=== PATIENT | female | born 1965 | race Asian ===

== ENCOUNTER → 2017-01-29 | Outpatient (CLI) | payer BC ==
[~2017-01-29] MED LIST: ALBUAER19 INH; CALC1CHW71 PO; CHOL1CAP57 PO; DTR5 PO; EPHE1TAB PO; FIBER GUMMIES PO; FLUT0.0529 NAE; GLUCOSAMINE HCL PO; LORAPOW16 PO; MULTTAB58 PO; OMEG10002 PO; TAMO20TA47 PO; [UNRECOGNIZED DRUG - OTHER] SL
--- NOTE | 2017-01-29 14:14 | MAMMOGRAPHY REPORT ---
UNILATERAL LEFT DIGITAL SCREENING MAMMOGRAM TOMOSYNTHESIS WITH CAD: 01/29/2017 CLINICAL HISTORY: Asymptomatic. Personal history of breast cancer. Post right mastectomy. TECHNIQUE: Left breast tomosynthesis in addition to standard 2D mammography was performed. Current st udy was also evaluated with a Computer Aided Detection (CAD) system. COMPARISON: Comparison is made to exams dated: 01/25/2016 mammogram, 01/23/2015 mammogram, 04/14/2014 mammogram, 03/29/2014 ultrasound, 02/18/2014 mammogram, and 02/18/2014 stereotactic biopsy - [facility]. BREAST COMPOSITION: The tissue of the left breast is heterogeneously dense, which may obscure small masses. FINDINGS: There is stable post biopsy changes in the upper outer quadrant of the left breast. A stab le benign rim calcification also seen in the left upper outer quadrant. No new suspicious mass, arch itectural distortion or cluster of microcalcifications is seen. IMPRESSION: ACR BI-RADS CATEGORY 1: NEGATIVE There is no mammographic evidence of malignancy. A 1 year screening mammogram is recommended. The pa tient will receive written notification of the results. Approximately 10% of breast cancers are not detected with mammography. A negative mammographic report should not delay biopsy if a clinically suggestive mass is present. Callie Cheng M.D. ay/:01/29/2017 12:55:25 Clam Dredger: Solange ELENAR, M, [facility] letter sent: Normal 1/2 BI-RADS Code: ACR BI-RADS Category 1: Negative
== END | disposition home or self-care (01) ==
LOC: C.MAMM 09:59
PROVIDERS: ATTEND Family Medicine
DX: Z12.31 Encounter for screening mammogram for malignant neoplasm of breast (principal); Z90.11 Acquired absence of right breast and nipple